=== PATIENT | female | born 1970 | race Caucasian/White ===

== ENCOUNTER → 2018-05-19 | Outpatient (CLI) | payer OTHER ==
--- NOTE | 2018-05-20 10:40 | MM ---
Reason for exam: screening (asymptomatic). Physical Findings: A clinical breast exam by your physician is recommended on an annual basis and results should be correlated with mammographic findings. MG Screening Mammo w CAD Bilateral CC and MLO view(s) were taken. No prior studies available for comparison. There are scattered fibroglandular densities. There is a 8mm low density anterior depth lower inner quadrant mass that appears circumscribed in the left breast. ASSESSMENT: Incomplete: need additional imaging evaluation, BI-RAD 0 RECOMMENDATION: Ultrasound of the left breast. [facility] will attempt to contact patient to return for ultrasound.
== END | disposition home or self-care (01) ==
LOC: RADMAMWWP 07:57
PROVIDERS: ATTEND Family Medicine
DX: Z12.31 Encounter for screening mammogram for malignant neoplasm of breast (principal)
CPT/HCPCS: 77067

== ENCOUNTER → 2018-05-28 | Outpatient (CLI) | payer OTHER ==
--- NOTE | 2018-05-29 07:24 | USB ---
Reason for exam: additional evaluation requested from abnormal screening. Physical Findings: Nurse did not find any significant physical abnormalities on exam. US Breast Workup Limited LT Left limited breast ultrasound including focal area of concern, retroareolar and axilla demonstrates a 0.6 x 0.6 x 0.4cm cystic lesion at 7 o'clock. These results were verbally communicated with the patient and result sheet given to the patient on 05/28/18. ASSESSMENT: Benign, BI-RAD 2 RECOMMENDATION: Return to routine screening mammogram schedule for both breasts.
== END | disposition home or self-care (01) ==
LOC: RADUSWWP 15:27
PROVIDERS: ATTEND Family Medicine
DX: R92.8 Other abnormal and inconclusive findings on diagnostic imaging of breast (principal)

== ENCOUNTER → 2019-06-05 | Outpatient (CLI) | payer OTHER ==
--- NOTE | 2019-06-08 13:58 | MM ---
Reason for exam: screening (asymptomatic). Last mammogram was performed 1 year and 1 month ago. Physical Findings: A clinical breast exam by your physician is recommended on an annual basis and results should be correlated with mammographic findings. MG Screening Mammo w CAD Bilateral CC, MLO, and XCCL view(s) were taken. Prior study comparison: May 19, 2018, bilateral MG screening mammo w CAD. There are scattered fibroglandular densities. There is chronic nodularity in the left breast. No significant changes when compared with prior studies. ASSESSMENT: Benign, BI-RAD 2 RECOMMENDATION: Routine screening mammogram of both breasts in 1 year.
== END | disposition home or self-care (01) ==
LOC: RADMAMWWP 16:21
PROVIDERS: ATTEND Family Medicine
DX: Z12.31 Encounter for screening mammogram for malignant neoplasm of breast (principal)
CPT/HCPCS: 77067

== ENCOUNTER → 2019-09-16 | Outpatient (CLI) | payer OTHER ==
[2019-09-16 12:09] LABS: African American GFR (CKD) >90 (>60 ml/min/1.73 sqM); Blood Urea Nitrogen 11 mg/dL (7-17); Non-African American GFR(CKD) >90 (>60 ml/min/1.73 sqM)
--- NOTE | 2019-09-16 13:41 | CT ---
EXAMINATION TYPE: CT abdomen pelvis w con DATE OF EXAM: 09/16/2019 COMPARISON: None HISTORY: Diverticulitis CT DLP: 3549.3 mGycm Automated exposure control for dose reduction was used. TECHNIQUE: Helical acquisition of images from the lung bases through the pelvis have been completed. CONTRAST: Performed with Oral Contrast and with IV Contrast, patient injected with 100 mL of Isovue 300. FINDINGS: Small umbilical hernia contains fat. LUNG BASES: No significant abnormality is appreciated. AORTA: No significant abnormality is appreciated. LIVER/GB: Liver is enlarged. There is low-attenuation within the liver, gallbladder is absent. Correl ate for hepatic steatosis. PANCREAS: No significant abnormality is seen. SPLEEN: No significant abnormality is seen. ADRENALS: No significant abnormality is seen. KIDNEYS: No significant abnormality is seen. REPRODUCTIVE ORGANS: Cystic focus associated with the right ovary measures 4.2 cm. Uterus is absent. Left ovary unremarkable. BOWEL: Diverticular changes associated with the colon. No inflammatory change to suggest diverticulit is however. There is no bowel obstruction. The appendix is normal. FREE AIR: No Free Air visible. ASCITES: None visible. PELVIC ADENOPATHY: None visualized. RETROPERITONEAL ADENOPATHY: No Retroperitoneal Adenopathy visible. URINARY BLADDER: No significant abnormality is seen. OSSEOUS STRUCTURES: Facet arthropathy, mild degenerative disc changes noted in the visualized spine IMPRESSION: DIVERTICULOSIS. HEPATOMEGALY AND HEPATIC STEATOSIS. POSTOP CHANGES. RIGHT OVARIAN LOW DENSE, POSSIBLY CYSTIC MASS, FOLLOW-UP SUGGESTED.
== END ==
LOC: RADCTMAIN 11:22
PROVIDERS: ATTEND Nurse Practitioner Family
DX: K57.90 Diverticulosis of intestine, part unspecified, without perforation or abscess without bleeding (principal); K76.0 Fatty (change of) liver, not elsewhere classified; R16.0 Hepatomegaly, not elsewhere classified; Z98.890 Other specified postprocedural states
CPT/HCPCS: 82565; 84520; 74177; 36415; Q9967

== ENCOUNTER 2019-11-04 10:48 | Observation (INO) | payer OTHER ==
[2019-11-04] MEDS ORDERED: ASPIRIN 81 MG PO STA (11:03)
[2019-11-04] MEDS ORDERED: NITROGLYCERIN SL TABS 0.4 MG TAB SUBLINGUAL STA (11:03)
[2019-11-04 11:17] LABS: Basophils % (A) 0 %; Eosinophils # (A) 0.2 k/uL (0-0.7); Eosinophils % (A) 2 %; HCT 43.4 % (34.0-46.0); HGB 14.6 gm/dL (11.4-16.0); Lymphocytes # (A) 2.4 k/uL (1.0-4.8); Lymphocytes % (A) 24 %; MCH 28.3 pg (25.0-35.0); MCHC 33.7 g/dL (31.0-37.0); MCV 84.1 fL (80.0-100.0); Monocytes # (A) 0.2 k/uL (0-1.0); Monocytes % (A) 2 %; Neutrophils # (A) 7.1 k/uL (1.3-7.7); Neutrophils % (A) 70 %; Platelet Count 324 k/uL (150-450); RBC 5.16 m/uL (3.80-5.40); WBC 10.2 k/uL (3.8-10.6)
--- NOTE | 2019-11-04 11:27 | ED ---
Chest Pain HPI - General Chief Complaint: Chest Pain Stated Complaint: SOB, LT ARM AND NECK PAIN Time Seen by Provider: 11/04/19 10:55 Source: patient, RN notes reviewed Mode of arrival: ambulatory Limitations: no limitations - History of Present Illness Initial Comments: This is a 48-year-old female presents emergency Department chief complaint chest pain. Patient states symptoms started last night. She states is very difficult to sleep on her left side secondary to the pain. She states pain worsens morning radiating up into her neck, left arm. She has no significant cardiac history though she does have a history of high blood pressure, diabetes. Patient did not take her blood pressure medication this morning. She reports no fevers or chills no chest congestion or cough. Patient has no abdominal complaints some back pain. Patient has no significant family cardiac disease. - Related Data Home Medications Medication Instructions Recorded Confirmed EPINEPHrine (Auto Inject) [Epipen] 0.3 mg IM ONCE PRN 02/22/14 02/22/14 Previous Rx's Medication Instructions Recorded Hydrocodone/Acetaminophen [[place] 1 - 2 each PO Q6HR PRN #24 tab 02/24/14 5-325] Allergies Allergy/AdvReac Type Severity Reaction Status Date / Time turkey Allergy Anaphylaxis Uncoded 11/04/19 10:54 Review of Systems ROS Statement: Those systems with pertinent positive or pertinent negative responses have been documented in the HPI. ROS Other: All systems not noted in ROS Statement are negative. EKG Findings - EKG Comments: EKG Findings:: EKG performed at 11:04 normal sinus rhythm rate of 98 SC 154 QRS 74 QT/QTC 352/449 Past Medical History Past Medical History: Diabetes Mellitus, Hypertension, Thyroid Disorder History of Any Multi-Drug Resistant Organisms: None Reported Past Surgical History: Hysterectomy Additional Past Surgical History / Comment(s): partial thyroidectomy 2 years ago. no problems with anesthesia Past Psychological History: No Psychological Hx Reported Smoking Status: Never smoker Past Alcohol Use History: None Reported Past Drug Use History: None Reported - Past Family History Sister(s) Family Medical History: No Reported History General Exam Limitations: no limitations General appearance: alert, in no apparent distress Head exam: Present: atraumatic, normocephalic, normal inspection Eye exam: Present: normal appearance, PERRL, EOMI. Absent: scleral icterus, conjunctival injection, periorbital swelling ENT exam: Present: normal exam, normal oropharynx, mucous membranes moist Neck exam: Present: normal inspection, full ROM. Absent: tenderness, meningismus, lymphadenopathy Respiratory exam: Present: normal lung sounds bilaterally, chest wall tenderness. Absent: respiratory distress, wheezes, rales, rhonchi, stridor Cardiovascular Exam: Present: regular rate, normal rhythm, normal heart sounds. Absent: systolic murmur, diastolic murmur, rubs, gallop, clicks GI/Abdominal exam: Present: soft, normal bowel sounds. Absent: distended, tenderness, guarding, rebound, rigid Course Vital Signs 11/04/19 11/04/19 10:50 11:43 Temperature 98.2 F Pulse Rate 100 94 Respiratory 18 17 Rate Blood Pressure 188/110 158/94 O2 Sat by Pulse 97 94 L Oximetry Chest Pain MDM - MDM 48-year-old female presented for chest pain. Patient's workup is negative this time blood pressure is improved patient relief with nitro. Patient be admitted for unstable angina. Patient was started on heparin. Critical Care Time Critical Care Time: Yes Total Critical Care Time: 35 Critical Care Time: Total 35 minutes of critical care time he is initially evaluated the patient carries a past medical history according labs and medications. Patient found to have unstable angina patient's pain improved with nitro. Patient was started on heparin. Patient will be admitted with cardiology evaluation will have repeat troponins, echo. Disposition Clinical Impression: Unstable angina Disposition: ADMITTED IP TO THIS [facility] Condition: Fair Referrals: Francesca Andrade DO [Primary Care Provider] - 1-2 days Time of Disposition: 12:15
[2019-11-04 11:32] LABS: D-Dimer 0.41 mg/L FEU (<0.60); INR 0.9 (<1.2); Partial Thromboplastin Time 25.4 sec (22.0-30.0); Prothrombin Time 9.4 sec (9.0-12.0)
[2019-11-04 11:33] LABS: ALT 25 U/L (4-34); AST 26 U/L (14-36); African American GFR (CKD) >90 (>60 ml/min/1.73 sqM); Albumin 4.4 g/dL (3.5-5.0); Alkaline Phosphatase 102 U/L (38-126); Anion Gap 11 mmol/L; Blood Urea Nitrogen 9 mg/dL (7-17); Calcium 9.8 mg/dL (8.4-10.2); Carbon Dioxide 23 mmol/L (22-30); Chloride 101 mmol/L (98-107); Glucose 164 mg/dL (74-99); Magnesium 1.9 mg/dL (1.6-2.3); Non-African American GFR(CKD) >90 (>60 ml/min/1.73 sqM); Potassium 4.3 mmol/L (3.5-5.1); Sodium 135 mmol/L (137-145); Total Bilirubin 0.6 mg/dL (0.2-1.3)
--- NOTE | 2019-11-04 11:37 | XR ---
EXAMINATION TYPE: XR chest 2V DATE OF EXAM: 11/04/2019 COMPARISON: None HISTORY: 48-year-old female with chest pain TECHNIQUE: PA and lateral views FINDINGS: The cardiomediastinal silhouette, aorta, and pulmonary vasculature are within normal limits. Mild int erstitial prominence as a chronic appearance. No consolidation or pleural effusion. IMPRESSION: Mild interstitial prominence could be chronic or could reflect bronchitis or asthma. No focal infiltr ate.
[2019-11-04] MEDS ORDERED: NITROGLYCERIN OINT 1 INCH/GM PACKET TOPICAL STA (11:44)
[2019-11-04] MEDS ORDERED: NITROGLYCERIN SL TABS 0.4 MG TAB SUBLINGUAL PRN (12:15)
[2019-11-04] MEDS ORDERED: HEPARIN SOD,PORK IN 0.45% NACL 25,000 UNIT in 0.45% NACL 1 250ML.BAG IV SCH (12:15)
[2019-11-04] MEDS ORDERED: HEPARIN SODIUM,PORCINE 5,000 UNIT/ML 1 ML VIAL IV ONE (12:15)
[2019-11-04] MEDS ORDERED: HEPARIN SODIUM,PORCINE 5,000 UNIT/ML 1 ML VIAL IV PRN (12:15)
--- NOTE | 2019-11-04 14:34 | P.CRDCN ---
History of Present Illness History of present illness: HISTORY OF PRESENTING ILLNESS This is a pleasant 48-year-old female past medical history significant for diabetes mellitus and hypertension. She denies prior history of coronary artery disease and does not follow in the office with a exercise rider for any reason. We have been asked to see in consultation for chest pain. She states last night she laid down to go to sleep and started noticing a pain in the left precordial region with radiation up the left side of her neck and associated with tingling in the left arm. She tried changing positions and laying on her right side or back. Her symptoms persisted with no specific aggravating or alleviating factors. They lasted all through the night without relief. She was unable to sleep. She had some associated nausea and did vomit once this morning. She took tylenol at 0530 and achieved some mild relief until around 0830 but then the sy mptoms returned. No shortness of breath, dizziness or palpitations. Upon arrival she was continuing to have chest pain. SL nitro was given and this did relieve her symptoms. She is currently chest pain free. DIAGNOSTICS EKG reveals sinus mechanism with no acute ischemic changes. EKG was obtained w hile she was having active chest pain. Chest xray revealed mild interstitial prominence suggestive of bronchitis. Laboratory reviewed, CBC unremarkable, d-dimer 0.41, sodium 135, potassium 4.3, creatinine 0.52, troponin negative x1, NT proBNP 48. Current cardiac medications include losartan . REVIEW OF SYSTEMS At the time of my exam: CONSTITUTIONAL: Denies fever or chills. CARDIOVASCULAR: Denies chest pain, shortness of breath, orthopnea, PND or palpitations. RESPIRATORY: Denies cough. GASTROINTESTINAL: Denies abdominal pain, diarrhea, constipation, nausea or vomiting. MUSCULOSKELETAL: Denies myalgias. NEUROLOGIC: Denies numbness, tingling or weakness. ENDOCRINE: Denies fatigue, weight change, polydipsia or polyurina. GENITOURINARY: Denies burning, hematuria or urgency with micturation. HEMATOLOGIC: Denies history of anemia or bleeding. PHYSICAL EXAMINATION Blood pressure 138/95 heart rate 101 afebrile and maintaining oxygen saturation on room air. CONSTITUTIONAL: No apparent distress. Obese. HEENT: Head is normocephalic. Pupils are equal, round. Sclerae anicteric. Mucous membranes of the mouth are moist. No JVD. No carotid bruit. CHEST EXAMINATION: Lungs are clear to auscultation. No chest wall tenderness is noted on palpation or with deep breathing. HEART EXAMINATION: Regular rate and rhythm. S1, S2 heard. No murmurs, gallops or rub. ABDOMEN: Soft, nontender. Positive bowel sounds. EXTREMITIES: 2+ peripheral pulses, no lower extremity edema and no calf tenderness. NEUROLOGIC EXAMINATION: Patient is awake, alert and oriented x3. ASSESSMENT Chest pain, atypical. Hypertension Diabetes mellitus Hypothyroidism Obesity, BMI 30 PLAN Continue to obtain serial cardiac enzymes to rule out an acute event. Discontinue heparin after negative troponins x2. Obtain 2D echocardiogram and doppler study to assess cardiac structure and function. Initiate atorvastatin 40 mg daily for primary prevention given her history of diabetes mellitus. Resume losartan as previously ordered. If enzymes are normal we will proceed with dobutamine stress echo in the morning. If stress testing normal would consider GI source. Gallbladder has been removed. Thank you kindly for this consultation. Nurse Practitioner note has been reviewed, I agree with a documented findings and plan of care. Patient was seen and examined. Past Medical History Past Medical History: Diabetes Mellitus, Hypertension, Thyroid Disorder Additional Past Medical History / Comment(s): NIDDM type II, thyroid nodules/surgery History of Any Multi-Drug Resistant Organisms: None Reported Past Surgical History: Cholecystectomy, Hysterectomy Additional Past Surgical History / Comment(s): partial thyroidectomy Past Anesthesia/Blood Transfusion Reactions: No Reported Reaction Smoking Status: Never smoker - Past Family History Sister(s) Family Medical History: No Reported History Mother Family Medical History: Cancer Additional Family Medical History / Comment(s): Mother of stomach cancer at the age of 55yrs. Father Family Medical History: No Reported History Additional Family Medical History / Comment(s): Father from "old age" at the age of 90yrs. Medications and Allergies Home Medications Medication Instructions Recorded Confirmed Type Levothyroxine Sodium [Synthroid] 25 mcg PO DAILY 11/04/19 11/04/19 History Losartan [Cozaar] 50 mg PO DAILY 11/04/19 11/04/19 History metFORMIN HCL [Glucophage] 500 mg PO BID 11/04/19 11/04/19 History Allergies Allergy/AdvReac Type Severity Reaction Status Date / Time turkey Allergy Anaphylaxis Uncoded 11/04/19 12:32 Physical Exam Vitals: Vital Signs Temp Pulse Pulse Resp BP BP Pulse Ox 11/04/19 13:17 98.7 F 101 H 18 138/95 98 11/04/19 12:32 93 17 142/81 96 11/04/19 11:43 94 17 158/94 94 L 11/04/19 10:50 98.2 F 100 18 188/110 97 Intake and Output 11/03/19 11/04/19 11/04/19 22:59 06:59 14:59 Intake Total 350 Balance 350 Intake: Oral 350 Other: Weight 83.915 kg Results 11/04/19 11:07 11/04/19 11:07 Cardiac Enzymes 11/04/19 11/04/19 Range/Units 11:07 11:07 AST 26 (14-36) U/L Troponin I <0.012 (0.000-0.034) ng/mL Coagulation 11/04/19 Range/Units 11:07 PT 9.4 (9.0-12.0) sec APTT 25.4 (22.0-30.0) sec CBC 11/04/19 Range/Units 11:07 WBC 10.2 (3.8-10.6) k/uL RBC 5.16 (3.80-5.40) m/uL Hgb 14.6 (11.4-16.0) gm/dL Hct 43.4 (34.0-46.0) % Plt Count 324 (150-450) k/uL Comprehensive Metabolic Panel 11/04/19 Range/Units 11:07 Sodium 135 L (137-145) mmol/L Potassium 4.3 (3.5-5.1) mmol/L Chloride 101 (98-107) mmol/L Carbon Dioxide 23 (22-30) mmol/L BUN 9 (7-17) mg/dL Creatinine 0.52 (0.52-1.04) mg/dL Glucose 164 H (74-99) mg/dL Calcium 9.8 (8.4-10.2) mg/dL AST 26 (14-36) U/L ALT 25 (4-34) U/L Alkaline Phosphatase 102 (38-126) U/L Total Protein 8.0 (6.3-8.2) g/dL Albumin 4.4 (3.5-5.0) g/dL Current Medications Generic Name Dose Route Start Last Admin Trade Name Freq PRN Reason Stop Dose Admin Aspirin 81 mg 11/05/19 09:00 Aspirin PO DAILY [facility] Atorvastatin Calcium 40 mg 11/04/19 21:00 Lipitor PO HS [facility] Heparin Sodium (Porcine) 0 unit 11/04/19 12:15 Heparin IV Q6HR PRN Low PTT Protocol Heparin Sodium/Sodium Chloride 250 mls @ 10.07 mls/hr 11/04/19 12:15 11/04/19 12:31 25,000 unit/ Sodium Chloride IV 12 units/kg/hr .Q24H [place] 10.07 mls/hr Administration Protocol 12 UNITS/KG/HR Losartan Potassium 50 mg 11/05/19 09:00 Cozaar PO DAILY [facility] Nitroglycerin 0.4 mg 11/04/19 12:15 Nitrostat SUBLINGUAL Q5M PRN Chest Pain Intake and Output 11/03/19 11/04/19 11/04/19 22:59 06:59 14:59 Intake Total 350 Balance 350 Intake: Oral 350 Other: Weight 83.915 kg Patient Weight 11/05/19 06:59 Weight 83.915 kg 11/04/19 11:07 11/04/19 11:07
--- NOTE | 2019-11-04 15:04 | ECHOF ---
Referral Reason:chest pain MEASUREMENTS -------- HEIGHT: 165.1 cm WEIGHT: 83.9 kg BP: IVSd: 1.2 cm (0.6 - 1.1) LVIDd: 3.7 cm (3.9 - 5.3) LVPWd: 1.5 cm (0.6 - 1.1) IVSs: 1.1 cm LVIDs: 2.7 cm LVPWs: 2.1 cm MV E Jesus: 0.56 m/s MV DecT: 122 ms MV A Jesus: 0.71 m/s MV E/A Ratio: 0.80 RAP: 5.00 mmHg RVSP: 10.41 mmHg FINDINGS -------- Sinus rhythm. This was a technically difficult study with suboptimal views. The left ventricular size is normal. There is mild concentric left ventricular hypertrophy. Overa ll left ventricular systolic function is normal with, an EF between 55 - 60 %. The RV was not well visualized. The left atrial size is normal. The right atrium was not well visualized. Lumason used The aortic valve was not well visualized. The mitral valve was not well visualized. The tricuspid valve was not well visualized. The pulmonic valve was not well visualized. There is no pericardial effusion. CONCLUSIONS -------- 1. This was a technically difficult study with suboptimal views. 2. There is mild concentric left ventricular hypertrophy. 3. Overall left ventricular systolic function is normal with, an EF between 55 - 60 %. 4. The RV was not well visualized. 5. The left atrial size is normal. 6. Lumason used 7. The aortic valve was not well visualized. 8. The mitral valve was not well visualized. 9. The tricuspid valve was not well visualized. 10. The pulmonic valve was not well visualized. 11. There is no pericardial effusion. KEEL PRESS OPERATOR: Daysi Jimenez RDCS
[2019-11-04 16:35] LABS: Glucose,Whole Blood 92 mg/dL (75-99)
[2019-11-04] MEDS: INSULIN ASPART (NovoLOG) 100 UNIT/ML VIAL SQ SCH ×2 (16:42→20:13)
[2019-11-04] MEDS ORDERED: ACETAMINOPHEN TAB 325 MG TAB PO PRN (17:06)
[2019-11-04] MEDS ORDERED: ATORVASTATIN 40 MG TAB PO SCH (21:00)
[2019-11-05] MEDS ORDERED: LEVOTHYROXINE 25 MCG TAB PO SCH (06:30)
[2019-11-05] MEDS ORDERED: DOBUTamine DRIP for NUC MED 500 MG in DEXTROSE/WATER 1 250ML.BAG IV ONE (07:00)
[2019-11-05 07:02] LABS: Glucose,Whole Blood 100 mg/dL (75-99)
[2019-11-05] MEDS: INSULIN ASPART (NovoLOG) 100 UNIT/ML VIAL SQ SCH (07:12)
[2019-11-05 07:17] VITALS: BP 102/71; PULSE 80; RESP 18; TEMP 98.3
[2019-11-05 08:48] LABS: Cholesterol 181 mg/dL (<200); HDL Cholesterol 42 mg/dL (40-60); LDL Cholesterol,Calculated 88 mg/dL (0-99); Triglycerides 253 mg/dL (<150)
[2019-11-05] MEDS ORDERED: ASPIRIN 81 MG PO SCH (09:00)
[2019-11-05] MEDS ORDERED: ASPIRIN 325 MG TAB PO SCH (09:00)
[2019-11-05] MEDS ORDERED: LOSARTAN 50 MG TAB PO SCH (09:00)
[2019-11-05] MEDS ORDERED: ATROPINE SULFATE 0.1 MG/ML 10ML SYRINGE ONE (10:35)
--- NOTE | 2019-11-05 11:25 | P.PN ---
Subjective HISTORY OF PRESENTING ILLNESS This is a pleasant 48-year-old female past medical history significant for diabetes mellitus and hypertension. She denies prior history of coronary artery disease and does not follow in the office with a manufacturing laborer for any reason. She has had no further symptoms of chest pain since admission. Cardiac enzymes are negative x3. LDL 88, HDL 42. Echocardiogram revealed preserved LV systolic function with EF 55-60%. Valves were difficult to visualize. Stress test performed is negative for stress induced ischemia. Blood pressure 102/71 heart rate 80 afebrile and maintaining oxygen saturation on room air. PHYSICAL EXAMINATION CONSTITUTIONAL: No apparent distress. Obese. HEENT: Head is normocephalic. Pupils are equal, round. Sclerae anicteric. Mucous membranes of the mouth are moist. No JVD. No carotid bruit. CHEST EXAMINATION: Lungs are clear to auscultation. No chest wall tenderness is noted on palpation or with deep breathing. HEART EXAMINATION: Regular rate and rhythm. S1, S2 heard. No murmurs, gallops or rub. EXTREMITIES: 2+ peripheral pulses, no lower extremity edema and no calf tenderness. ASSESSMENT Chest pain, atypical. Hypertension Diabetes mellitus Hypothyroidism Obesity, BMI 30 PLAN Stable for discharge from a cardiac perspective. Follow up in the office with Dr. Drake in 4 weeks. Consider GI etiology for pain, possibly PPI. Nurse Practitioner note has been reviewed, I agree with a documented findings and plan of care. Patient was seen and examined. Objective - Vital Signs Vital signs: Vital Signs Temp 98.3 F 11/05/19 07:16 Pulse 80 11/05/19 07:16 Resp 18 11/05/19 07:16 BP 102/71 11/05/19 07:16 Pulse Ox 96 11/05/19 07:16 Intake & Output 11/04/19 11/05/19 11/05/19 18:59 06:59 18:59 Intake Total 800 480 Output Total 200 Balance 800 280 Weight 83.915 kg Intake: Oral 800 480 Output: Urine/Stool Mix 200 Other: Voiding Method Toilet Toilet Toilet # Voids 1 - Labs CBC & Chem 7: 11/04/19 11:07 11/04/19 11:07 Labs: Abnormal Lab Results - Last 24 Hours (Table) 11/04/19 11/04/19 11/05/19 Range/Units 11:07 11:07 07:01 Sodium 135 L (137-145) mmol/L Glucose 164 H (74-99) mg/dL POC Glucose (mg/dL) 100 H (75-99) mg/dL Triglycerides 253 H (<150) mg/dL
--- NOTE | 2019-11-05 11:45 | ECHOS ---
STRESS ECHOCARDIOGRAM INDICATIONS: Chest pain. MEDICATIONS: Metformin, losartan, levothyroxine. BASELINE HEART RATE: 79 BASELINE BLOOD PRESSURE: 132/102 MAXIMUM HEART RATE: 149 MAXIMUM BLOOD PRESSURE: 155/64 85% MPHR: 148 100% MPHR: 174 MAXIMUM STAGE REACHED: 4 TOTAL EXERCISE TIME: 12:38 CLINICAL INFORMATION: Baseline rhythm is a sinus mechanism, rate of 79, normal axis intervals, nonspecific ST- T wave changes. Baseline blood pressure 132/102 mmHg. Patient received infusion of dobutamine and 1 mg intravenous atropine. Peak rate 149 beats per minute which is equal to 85% maximum predicted heart rate. Peak blood pressure 155/64 mmHg. Electrocardiograph monitoring revealed no evidence of diagnostic ischemic ST deviation. FINDINGS: Baseline echocardiogram revealed normal wall motion. At peak exercise, there was normal wall motion augmentation with no hypokinesis or dyskinesis. CONCLUSION: 1. Nondiagnostic electrocardiograph dobutamine stress test, secondary to baseline EKG abnormality with [address]-segment depression. 2. Rare premature ventricular contractions. 3. Normal stress echocardiogram with no evidence of stress-induced ischemia. MMODL / IJN: [id number] /
[2019-11-05 12:13] LABS: Glucose,Whole Blood 130 mg/dL (75-99)
--- NOTE | 2019-11-05 22:29 | P.HPIM ---
History of Present Illness H&P Date: 11/04/19 Chief Complaint: chest pain Krystina Foreman is a 48 yo F with PMH HTN, T2DM who presented to the ED complaining of chest pain. She states last night she laid down to go to sleep and started noticing a pain in the left precordial region with radiation up the left side of her neck and associated with tingling in the left arm. She tried changing positions and laying on her right side or back. Her symptoms persisted with no specific aggravating or alleviating factors. They lasted all through the night without relief. She was unable to sleep. She had some associated nausea and did vomit once this morning. She took tylenol at 0530 and achieved some mild relief until around 0830 but then the symptoms returned. No shortness of breath, dizziness or palpitations. On presentation she was experiencing chest pain which was relieved by SL nitro. Labs unremarkable, trop negative. She is currently chest pain free. Review of Systems All systems: negative Constitutional: Denies chills, Denies fever Eyes: denies blurred vision, denies pain Ears, nose, mouth and throat: Denies headache, Denies sore throat Cardiovascular: Reports chest pain, Denies shortness of breath Respiratory: Denies cough Gastrointestinal: Denies abdominal pain, Denies diarrhea, Denies nausea, Denies vomiting Genitourinary: Denies dysuria, Denies hematuria Musculoskeletal: Denies myalgias Integumentary: Denies pruritus, Denies rash Neurological: Denies numbness, Denies weakness Psychiatric: Denies anxiety, Denies depression Endocrine: Denies fatigue, Denies weight change Past Medical History Past Medical History: Diabetes Mellitus, Hypertension, Thyroid Disorder Additional Past Medical History / Comment(s): NIDDM type II, thyroid nodules/surgery History of Any Multi-Drug Resistant Organisms: None Reported Past Surgical History: Cholecystectomy, Hysterectomy Additional Past Surgical History / Comment(s): partial thyroidectomy Past Anesthesia/Blood Transfusion Reactions: No Reported Reaction Smoking Status: Never smoker - Past Family History Sister(s) Family Medical History: No Reported History Mother Family Medical History: Cancer Additional Family Medical History / Comment(s): Mother of stomach cancer at the age of 55yrs. Father Family Medical History: No Reported History Additional Family Medical History / Comment(s): Father from "old age" at the age of 90yrs. Medications and Allergies Home Medications Medication Instructions Recorded Confirmed Type Levothyroxine Sodium [Synthroid] 25 mcg PO DAILY 11/04/19 11/04/19 History Losartan [Cozaar] 50 mg PO DAILY 11/04/19 11/04/19 History metFORMIN HCL [Glucophage] 500 mg PO BID 11/04/19 11/04/19 History Atorvastatin [Lipitor] 40 mg PO HS #30 tab 11/05/19 Rx Allergies Allergy/AdvReac Type Severity Reaction Status Date / Time turkey Allergy Anaphylaxis Uncoded 11/04/19 12:32 Physical Exam Vitals: Vital Signs Temp Pulse Resp BP BP Pulse Ox 11/05/19 07:16 98.3 F 80 18 102/71 96 11/05/19 03:56 15 11/05/19 03:55 98.1 F 88 15 124/75 97 11/04/19 23:00 98.6 F 89 16 141/78 98 Intake and Output 11/05/19 11/05/19 11/05/19 06:59 14:59 22:59 Other: Voiding Method Toilet Toilet # Voids 1 Weight 83.91 kg General: well nourished, well developed, NAD. Vitals reviewed Eyes: PERRL, EOMI, conjunctiva normal HENT: normocephalic, mucus membranes moist Neck: supple, no JVD Lungs: normal respiratory effort, no wheezes or rales CV: Regular rate and rhythm, no murmur. Peripheral pulses 2+ Abdomen: soft, nondistended, no organomegaly Lymph: no cervical or axillary LAD Skin: warm and dry. Neuro: A&Ox3, normal mood and affect Results CBC & Chem 7: 11/04/19 11:07 11/04/19 11:07 Labs: Abnormal Lab Results - Last 24 Hours (Table) 11/04/19 11/04/19 11/05/19 Range/Units 11:07 19:43 07:01 POC Glucose (mg/dL) 130 H 100 H (75-99) mg/dL Triglycerides 253 H (<150) mg/dL Thrombosis Risk Factor Assmnt - Choose All That Apply Any of the Below Risk Factors Present?: Yes Each Factor Represents 1 point: Age 41-60 years, Obesity (BMI >25) Other Risk Factors: No Other congenital or acquired thrombophilia - If yes, enter type in comment: No Thrombosis Risk Factor Assessment Total Risk Factor Score: 2 Thrombosis Risk Factor Assessment Level: Low Risk Assessment and Plan (1) Essential hypertension Status: Acute Code(s): I10 - ESSENTIAL (PRIMARY) HYPERTENSION SNOMED Code(s): 19601207 (2) Type 2 diabetes mellitus Status: Acute Code(s): E11.9 - TYPE 2 DIABETES MELLITUS WITHOUT COMPLICATIONS SNOMED Code(s): 90207224 (3) Unstable angina Status: Acute Code(s): I20.0 - UNSTABLE ANGINA SNOMED Code(s): 7005651 Plan: 1. Chest pain. ACS ruled out. Cardiology consulted for further evaluation 2. HTN. Continue losartan 3. T2DM. Continue home metformin. Accucheck, sliding scale
--- NOTE | 2019-11-05 22:32 | P.DS ---
Providers Date of admission: 11/04/19 12:19 Expected date of discharge: 11/05/19 Attending physician: Jasen Dejesus MD Consults: 11/04/19 12:16 Consult Physician Urgent Consulting Provider: Danyel Hodges Consult Reason/Comments: chest pain Do you want consulting provider notified?: Yes Primary care physician: Francesca Andrade - Discharge Diagnosis(es) (1) Essential hypertension Status: Acute (2) Type 2 diabetes mellitus Status: Acute (3) Unstable angina Status: Acute Hospital Course: Krystina Foreman is a 48 yo F with PMH HTN, T2DM who presented to the ED complaining of chest pain. She states last night she laid down to go to sleep and started noticing a pain in the left precordial region with radiation up the left side of her neck and associated with tingling in the left arm. She tried changing positions and laying on her right side or back. Her symptoms persisted with no specific aggravating or alleviating factors. They lasted all through the night without relief. She was unable to sleep. She had some associated nausea an d did vomit once this morning. She took tylenol at 0530 and achieved some mild relief until around 0830 but then the symptoms returned. No shortness of breath, dizziness or palpitations. On presentation she was experiencing chest pain which was relieved by SL nitro. Labs unremarkable, trop negative. Pt was admitted to observation and seen by cardiology. She underwent echocardiogram which was unrem arkable and subsequent dobutamine stress echo and EKG which did show [address] segment depression but no inducible ischmic changes. She is discharged in stable condition and recommended to follow up with her PCP as an outpatient. Discharge Exam: General: well nourished, well developed, NAD. Vitals reviewed HENT: normocephalic, mucus membranes moist Lungs: normal respiratory effort, no wheezes or rales CV: Regular rate and rhythm, no murmur. Peripheral pulses 2+ Abdomen: soft, nondistended, no organomegaly Skin: warm and dry. Neuro: A&Ox3, normal mood and affect Patient Condition at Discharge: Fair Plan - Discharge Summary Discharge Rx Participant: No New Discharge Prescriptions: New Atorvastatin [Lipitor] 40 mg PO HS #30 tab Continue metFORMIN HCL [Glucophage] 500 mg PO BID Losartan [Cozaar] 50 mg PO DAILY Levothyroxine Sodium [Synthroid] 25 mcg PO DAILY Discharge Medication List Levothyroxine Sodium [Synthroid] 25 mcg PO DAILY 11/04/19 [History] Losartan [Cozaar] 50 mg PO DAILY 11/04/19 [History] metFORMIN HCL [Glucophage] 500 mg PO BID 11/04/19 [History] Atorvastatin [Lipitor] 40 mg PO HS #30 tab 11/05/19 [Rx] Follow up Appointment(s)/Referral(s): Sherri Drake MD [STAFF PHYSICIAN] - 4 Weeks Francesca Andrade DO [Primary Care Provider] - 3 Days Patient Instructions/Handouts: Atorvastatin (By mouth), Chest Pain (GEN) Discharge Disposition: HOME SELF-CARE
== END 2019-11-05 12:19 | disposition home or self-care (01) ==
LOC: EC 10:48 → 1SOBS 12:19
PROVIDERS: ADMIT Family Medicine; ATTEND Family Medicine
DX: I20.0 Unstable angina (principal); I10 Essential (primary) hypertension; E11.9 Type 2 diabetes mellitus without complications; E89.0 Postprocedural hypothyroidism; R20.2 Paresthesia of skin; E66.9 Obesity, unspecified; Z68.30 Body mass index [BMI] 30.0-30.9, adult; Z79.890 Hormone replacement therapy; Z79.84 Long term (current) use of oral hypoglycemic drugs; Z79.899 Other long term (current) drug therapy; Z91.018 Allergy to other foods; Z90.49 Acquired absence of other specified parts of digestive tract; Z90.710 Acquired absence of both cervix and uterus; Z80.0 Family history of malignant neoplasm of digestive organs
CPT/HCPCS: 96366; 96376; 96365; 99291; 36415; 93005; 93306; 93351; 85379; 83880; 80061; 80053; 83690; 83735; 84484; 85025; 85610; 85730; 71046; G0378 ×2; J1250; J1644 ×2; J0461; Q9950 ×2

== ENCOUNTER → 2021-02-27 | Outpatient (CLI) | payer OTHER ==
--- NOTE | 2021-03-02 15:24 | MM ---
Reason for exam: screening (asymptomatic). Last mammogram was performed 1 year and 9 months ago. Physical Findings: A clinical breast exam by your physician is recommended on an annual basis and results should be correlated with mammographic findings. MG Screening Mammo w CAD Bilateral CC, MLO, and XCCL view(s) were taken. Prior study comparison: June 05, 2019, bilateral MG screening mammo w CAD. May 19, 2018, bilateral MG screening mammo w CAD. There are scattered fibroglandular densities. There is chronic nodularity in the left breast. No significant changes when compared with prior studies. ASSESSMENT: Benign, BI-RAD 2 RECOMMENDATION: Routine screening mammogram of both breasts in 1 year.
== END | disposition home or self-care (01) ==
LOC: RADMAMWWP 12:48
PROVIDERS: ATTEND Family Medicine
DX: Z12.31 Encounter for screening mammogram for malignant neoplasm of breast (principal)
CPT/HCPCS: 77067

== ENCOUNTER → 2022-04-20 | Outpatient (CLI) | payer OTHER ==
--- NOTE | 2022-04-24 08:22 | MM ---
Reason for Exam: Screening (asymptomatic). Last mammogram was performed 1 year(s) and 2 month(s) ago. Patient History: Menarche at age 14. First Full-Term at age 19. Hysterectomy at age 42. Patient has history of breast feeding. Risk Values: Kayy 5 year model risk: 0.7%. NCI Lifetime model risk: 6.6%. Prior Study Comparison: 05/19/2018 Bilateral Screening Mammogram, [facility]. 06/05/2019 Bilateral Screening Mammogram, [facility]. 02/27/2021 Bilateral Screening Mammogram, [facility]. Tissue Density: There are scattered fibroglandular densities. Findings: Analyzed By CAD. There is no suspicious group of microcalcifications or new suspicious mass in either breast. Overall Assessment: Negative, BI-RAD 1 Management: Screening Mammogram of both breasts in 1 year. A clinical breast exam by your physician is recommended on an annual basis and results should be correlated with mammographic findings. Electronically signed and approved by: Radames Hinojosa DO
== END | disposition home or self-care (01) ==
LOC: RADMAMWWP 13:45
PROVIDERS: ATTEND Family Medicine
DX: Z12.31 Encounter for screening mammogram for malignant neoplasm of breast (principal)
CPT/HCPCS: 77063; 77067

== ENCOUNTER → 2022-05-09 | Outpatient (CLI) | payer OTHER ==
--- NOTE | 2022-05-10 14:50 | CA ---
Exercise Stress Test Report Name: Krystina Foreman Exam Date: 05/09/2022 11:02 Exam Location: [place] Stress Ht (in): 65 Wt (lb): 277 BSA: 2.27 Ordering Phys: JESUS MONACO Referring Phys: CARLOS ENRIQUE, Technologist: Shaggy Begum Age: 51 Gender: F : 1970 Procedure CPT: Indications: ICD-10 Codes: Patient History: CHEST PAIN, HTN, DIABETIC Medications: METOPROLOL, LOSARTAN, HZTZ, VIT D, SYNTHROID, METFORMIN Meds past 24 hrs: Pretest Chest Pain: STRESS TEST Constantino Protocol Exercise Duration (min:sec): 06:[address] Depressions (mm): Angina Score: Albarran Score: Resting HR (bpm): 83 Peak HR (bpm): 147 Resting BP (mmHg): 151 / 64 Peak BP (mmHg): 215 / 101 MPHR: 171 Target HR: 145 % MPHR: 86 METS: 7.5 Total Dose: Peak Dose: Atropine: Double Product: 67860 BP Response: Normal Resting Blood Pressure - Appropriate Stress Termination: Fatigue Stress Symptoms: No chest pain or symptoms Stress Summary: ECG ANALYSIS Resting ECG: Sinus rhythm. Normal conduction. No arrhythmias. Non-specific ST-T wave changes. Stress ECG: Sinus rhythm. Normal conduction. Rate PVCs. Nonspecific ST-T abnormality. CONCLUSIONS 1. Decrease exercise tolerance 2. Nondiagnostic treadmill stress testing secondary to baseline EKG abnormality 3. If clinically indicated and imaging stress test would be helpful. Dr. Sherri Drake MD (Electronically Signed) Final Date: 09 May 2022 13:44
== END | disposition home or self-care (01) ==
LOC: RADNMMAIN 10:33
PROVIDERS: ATTEND Family Medicine
DX: I10 Essential (primary) hypertension (principal); I51.7 Cardiomegaly; R94.31 Abnormal electrocardiogram [ECG] [EKG]
CPT/HCPCS: 93017

== ENCOUNTER → 2023-05-14 | Outpatient (CLI) | payer BC ==
--- NOTE | 2023-05-15 21:25 | MM ---
Reason for Exam: Screening (asymptomatic). Last mammogram was performed 1 year(s) and 1 month(s) ago. Patient History: Menarche at age 14. First Full-Term at age 19. Hysterectomy at age 42. Patient has history of breast feeding. Risk Values: Kayy 5 year model risk: 0.7%. NCI Lifetime model risk: 6.5%. Prior Study Comparison: 06/05/2019 Bilateral Screening Mammogram, [facility]. 02/27/2021 Bilateral Screening Mammogram, [facility]. 04/20/2022 Bilateral MG 3D screening mammo w/cad, [facility]. Tissue Density: There are scattered fibroglandular densities. Findings: Analyzed By CAD. There is chronic nodularity in the left breast. There is no suspicious group of microcalcifications or new suspicious mass in either breast. Overall Assessment: Benign, BI-RAD 2 Management: Screening Mammogram of both breasts in 1 year. . Patient should continue monthly self-breast exams. A clinical breast exam by your physician is recommended on an annual basis. This exam should not preclude additional follow-up of suspicious palpable abnormalities. Note on Kayy scores and lifetime risk: 1. A Kayy score greater than 3% is considered moderate risk. If this is the case, consider specialist referral to assess eligibility for a risk reducing agent. 2. If overall lifetime risk for the development of breast cancer is 20% or higher, the patient may qualify for future screening with alternating mammogram and breast MRI. Electronically signed and approved by: Nimisha Salgado M.D. Radiologist
== END | disposition home or self-care (01) ==
LOC: RADMAMWWP 17:02
PROVIDERS: ATTEND Family Medicine
DX: Z12.31 Encounter for screening mammogram for malignant neoplasm of breast (principal)
CPT/HCPCS: 77063; 77067

== ENCOUNTER → 2024-05-15 | Outpatient (CLI) | payer BC ==
--- NOTE | 2024-05-18 09:00 | MM ---
Reason for Exam: Screening (asymptomatic). Last screening mammogram was performed 12 month(s) ago. Patient History: Menarche at age 14. First Full-Term at age 19. Hysterectomy at age 42. Patient has history of breast feeding. Risk Values: Kayy 5 year model risk: 0.7%. NCI Lifetime model risk: 6.4%. Prior Study Comparison: 02/27/2021 Bilateral Screening Mammogram, [facility]. 04/20/2022 Bilateral MG 3D screening mammo w/cad, [facility]. 05/14/2023 Bilateral MG 3D screening mammo w/cad, [facility]. Tissue Density: There are scattered areas of fibroglandular density. Findings: Analyzed By CAD. Right breast: There is no suspicious group of microcalcifications or new suspicious mass. Left breast: There is no suspicious group of microcalcifications or new suspicious mass. Overall Assessment: Negative, BI-RAD 1 Management: Screening Mammogram of both breasts in [address] [facility] will attempt to contact patient to return for supplemental views and ultrasound if indicated. Patient should continue monthly self-breast exams. A clinical breast exam by your physician is recommended on an annual basis. This exam should not preclude additional follow-up of suspicious palpable abnormalities. Note on Kayy scores and lifetime risk: 1. A Kayy score greater than 3% is considered moderate risk. If this is the case, consider specialist referral to assess eligibility for a risk reducing agent. 2. If overall lifetime risk for the development of breast cancer is 20% or higher, the patient may qualify for future screening with alternating mammogram and breast MRI. [facility], , 05/18/2024 8:55 AM. Electronically signed and approved by: Radames Hinojosa DO
== END | disposition home or self-care (01) ==
LOC: RADMAMWWP 16:24
PROVIDERS: ATTEND Family Medicine
CPT/HCPCS: 77063; 77067